=== PATIENT | female | born 1985 ===

== ENCOUNTER 2018-02-18 09:35 | Inpatient (IN) | payer SELFPAY ==
[2018-02-18] MEDS ORDERED: ceFAZolin 2 GM/DEXTROSE 100 ML IV ONE (09:38)
[2018-02-18] MEDS ORDERED: LR 500 ML IV ONE (09:38)
[2018-02-18] MEDS ORDERED: MISOPROSTOL 200 MCG TAB PR PRN (09:39)
[2018-02-18] MEDS ORDERED: TERBUTALINE SULFATE 1 MG/ML VIAL IV PRN (09:39)
[2018-02-18] MEDS ORDERED: OXYTOCIN/RINGERS LACTATE 1,000 ML IV PRN (09:39)
[2018-02-18] MEDS ORDERED: LR 1,000 ML IV PRN (09:39)
[2018-02-18] MEDS ORDERED: OLIVE OIL 118 ML BTL MISC PRN (09:39)
[2018-02-18] MEDS ORDERED: IBUPROFEN 600 MG TAB PO PRN (09:39)
[2018-02-18] MEDS ORDERED: LIDOCAINE 1% 300 MG/30 ML SDV SC PRN (09:39)
[2018-02-18] MEDS ORDERED: EPSOM SALT 454 GM TP PRN (09:39)
[2018-02-18] MEDS ORDERED: LR 1,000 ML IV SCH (10:00)
[2018-02-18] MEDS ORDERED: BETAMETHASONE IM SYRINGE IM ONE (10:15)
[2018-02-18 10:34] LABS: PLATELET COUNT 212 10^3/uL (150-400); PLATELET COUNT 258 10^3/uL (150-400)
[2018-02-18] MEDS ORDERED: DOCUSATE SODIUM 100 MG CAP PO PRN (10:35)
[2018-02-18] MEDS ORDERED: SIMETHICONE 80 MG TAB CHEW PO PRN (10:35)
[2018-02-18] MEDS ORDERED: PROMETHAZINE HCL 25 MG/ML INJ IVP PRN ×2 (10:35→10:36)
[2018-02-18] MEDS ORDERED: LR 500 ML IV PRN (10:36)
[2018-02-18] MEDS ORDERED: DEXAMETHASONE 4 MG/ML VIAL IVP PRN (10:36)
[2018-02-18] MEDS ORDERED: HYDROmorphONE/DILAUDID 2 MG/ML INJ IVP PRN (10:36)
[2018-02-18] MEDS ORDERED: NS 500 ML IV PRN (10:36)
[2018-02-18] MEDS ORDERED: fentaNYL 100 MCG/2 ML INJ IVP PRN (10:36)
[2018-02-18] MEDS ORDERED: ONDANSETRON 4 MG/2 ML VIAL IVP PRN ×2 (10:36→10:37)
[2018-02-18] MEDS ORDERED: NALOXONE HCL 0.4 MG/ML INJ IVP PRN ×2 (10:36→10:37)
[2018-02-18] MEDS ORDERED: METOCLOPRAMIDE 10 MG/2 ML VIAL IVP PRN (10:37)
[2018-02-18] MEDS ORDERED: HYDROmorphONE/DILAUDID 6 MG/30 ML PCA IV PRN (10:37)
[2018-02-18] MEDS ORDERED: POLYETHYLENE GLYCOL 3350 17 GM PKT PO PRN (10:38)
[2018-02-18] MEDS ORDERED: LACTULOSE 20 GM/30 ML UDCUP PO PRN (10:38)
[2018-02-18] MEDS ORDERED: BISACODYL 10 MG SUPP PR PRN (10:38)
[2018-02-18] MEDS ORDERED: MAGNESIUM HYDROXIDE 30 ML UDCUP PO PRN (10:38)
--- NOTE | 2018-02-18 10:39 | PDANEPAE ---
ANE History of Present Illness Emergency CS abruption ANE Review of Systems Review of systems is: negative Review of Systems: - Exercise capacity Exercise capacity: >=4 METS ANE Patient History - Allergies Allergies/Adverse Reactions: No Known Allergies Allergy (Unverified 02/18/18 09:38) ANE Labs/Vital Signs - Labs Result Diagrams: 02/18/18 10:11 02/18/18 10:11 ANE Physical Exam - Airway Neck exam: FROM Mallampati Score: Class 1 - Cardiovascular Cardiovascular: regular rate and rhythym - ASA Status ASA Status: II, E ANE Anesthesia Plan Anesthesia Plan: general endotracheal anesthesia Urgent/Emergent Case: Alanis bishop completed preop but documented later for safe timely pt care
--- NOTE | 2018-02-18 10:39 | POSTANESTH ---
Post Anesthetic Evaluation Cardiovascular Status: Normal, Stable Respiratory Status: Normal, Stable Level of Consciousness/Mental Status: Can Participate in Eval Pain Control: Inadeq, Add Tx Required Nausea/Vomiting Control: Adequate, Prn Tx Ordered Complications Possibly Related to Anesthesia: None Noted
--- NOTE | 2018-02-18 10:50 | OBDEL ---
Info Type: Primary Presentation at Delivery: Vertex L&D Analgesia/Anesthesia Type: General GBS+: No (unknown, patient no PNC) Intrapartum Medications: Ancef 2 g IV intra-op - Infant Care Provider Critical Care Nurse/CUSTOMS COMPLIANCE SPECIALIST: Natasha Homer - [facility] Course Intrapartum: 02/18/18 10:42 Pt presented with unknown LMP, told she was "6 weeks early." With severe heavy vaginal bleeding, passing large clots and rigid abdomen, writhing in pain which she described as a constant severe contraction. On attempt to document status, dopler document FHT's of 64, I performed a vaginal exam and her cervix was 1 cm, long, with heavy bleeding + clots. U/s documented heart rate in 60's. At that time the diagnosis of acute placental abruption was made and we proceeded with stat LTCS. Vaginal Delivery - Labor and Delivery Cord Gases: Cord Gases Cord Blood PCO2 103 mmHg (37-60) H 02/18/18 09:40 Cord Base Excess -29.3 mEq/L (-13.6--3.2) L 02/18/18 09:40 Cord ABG pH 6.73 (7.10-7.37) L 02/18/18 09:40 Cord VBG pH 6.83 (7.20-7.42) L 02/18/18 09:40 Operative Report - Delivery Pre-op Diagnoses: acute placental abruption Post-op Diagnoses: same History of Prior Section: No Number of Prior Sections: 0 Nulliparous Prior to Delivery: No Indications for Current Section: Placental Abruption Procedure: Emergent Surgeon: Valerie Anderson Courtesy Booth Cashier: Jez Marrero Anesthesiologist: Raffi Chapman Complications: None Findings: 70% placental abruption, normal uterus, tubes and ovaries Specimen(s)/Path: Placenta IV Fluid (ml): 1,000 EBL: 700 for surgery, 1500 for abruption Cord Gases: Cord Gases Cord Blood PCO2 103 mmHg (37-60) H 02/18/18 09:40 Cord Base Excess -29.3 mEq/L (-13.6--3.2) L 02/18/18 09:40 Cord ABG pH 6.73 (7.10-7.37) L 02/18/18 09:40 Cord VBG pH 6.83 (7.20-7.42) L 02/18/18 09:40 [place] Data [facility] Delivery Date: 02/18/18 Delivery Time: 09:40 Sex of : Male Weight (gm): 3550 g Score (1 Min): 1 Score (5 Min): 2 Score (10 Min): 2 ICD10 Worksheet Patient Problems: Problems Problem Status Onset Placental abruption Acute S/P emergency Acute - ICD10 Problem Qualifiers (1) S/P emergency (2) Placental abruption
[2018-02-18 11:05] LABS: INR 1.09 (0.83-1.16); PROTIME(PATIENT) 14.3 SEC (12.0-15.0)
[2018-02-18] MEDS ORDERED: KETOROLAC 30 MG/1 ML SDV ONE (11:18)
[2018-02-18] MEDS: KETOROLAC 30 MG/1 ML SDV IVP PRN ×3 (11:20→23:08)
--- NOTE | 2018-02-18 11:45 | GOP ---
DATE OF OPERATION: 02/18/2018 SURGEON: Valerie Anderson MD CATALYST SUPERVISOR: Dr. Jez Marrero MD. ANESTHESIA: General anesthesia. ANESTHESIOLOGIST: Dr. Raffi Chapman. PREOPERATIVE DIAGNOSIS: Acute placental abruption. POSTOPERATIVE DIAGNOSIS: Acute placental abruption. PROCEDURE PERFORMED: Emergent lower transverse section. FINDINGS: Viable male, Apgars of 1, 2 and 2, weight of 3550 g. Arterial pH was 6.73, venous pH 6.83 , pCO2 103. Documented start time for the procedure was 9:40 and delivery time was also 9:40. ESTIMATED BLOOD LOSS: For the procedure was 700 cc. Estimated blood loss for the abruption was appr oximately 1500. DESCRIPTION OF PROCEDURE: The patient was placed under general anesthesia. A Castro catheter was cong donny and she had a quick Betadine prep performed. A WHO time-out was performed. Patient had Ancef st arted. A transverse skin incision was made with a scalpel. Incision was carried down to the underly ing layer of fascia with the scalpel. The fascia was incised in the midline with Jurado scissors. Sup erior aspect of the fascia was incision was grasped with Emeli clamps, elevated, and the rectus musc les were dissected off sharply. Inferior aspect of the fascial incision was grasped with Emeli clam ps, elevated, and the rectus muscles were sharply. Rectus muscles were in the mi dline. Peritoneum was entered bluntly. The bladder blade was inserted and the uterus. The vesicout erine peritoneum and the uterus were incised with a knife. The incision was extended bluntly. There was large clots upon entry to the uterine cavity. The was in cephalic presentation and was d elivered atraumatically. The cord was clamped and cut. The infant was handed off to the waiting [facility] nurse practitioner. Cord blood sample was sent as well as cord bloods were sent. The placenta was removed manually estimated to be approximately 70% abrupt. The uterus was exteriorized, cleared of all clots and debris. The uterine tone was found to be normal. The uterine incision was repaire d with 0 Vicryl in a running, locked fashion. Small areas of bleeding were made hemostatic with figu re-of-eight sutures of 0 Vicryl and a second imbricating layer was also performed and good hemostasis was assured. The uterus was returned to the abdomen. Gutters were cleared of all clots and debris. Reinspection of the uterine incision again assured hemostasis. The rectus muscles were approximate d with 2-0 Vicryl in an inverted mattress fashion. The fascia was closed with #1 Vicryl in a running fashion. Subcutaneous layer was closed with 2-0 Vicryl and the skin was closed with 4-0 Vicryl. Th e patient tolerated the procedure well. An instrument count was not performed prior to surgery, so a n x-ray was performed at the end of surgery and there were no documented foreign bodies. The patient went to the recovery room in good condition. INDICATIONS FOR PROCEDURE: The patient is a 32-year-old 2, para 1-0-0-1, with an unknown las t menstrual or EDC, who presented without care to Labor and Delivery at [facility]. She was complaining of severe abdominal pain, was writhing in pain with a rigid uterus and h eavy vaginal bleeding, passing large clots she reported at 9:20 a.m. The patient reported the bleedi ng had started at 3 a.m. and the pain acutely worsened over several hours. She was unable to reveal if she had had adequate care or any history of her including her last menstrual pe riod or EDC. The patient reported that she was "6 weeks early." On assessment, she was having heavy vaginal bleeding, had a rigid uterus and heart tones were documented at 64. Ultrasound confir med documented heart rates between 60 and 70. A cervical exam was performed. She was 1 cm, 50%, had large clots vaginally. Decision was made to proceed with stat lower transverse section for presumed placental abruption of unknown gestational age. The patient was verbally consented. Writt en consent was not performed. The patient was rolled to the operating room quickly. IV FLUIDS: 1000 cc. URINE OUTPUT: 150 cc. /[id number]/MODL
[2018-02-18 15:36] LABS: HEPATITIS B SURFACE ANTIGEN NEGATIVE (NEGATIVE); HEPATITIS C ANTIBODY TOTAL NEGATIVE (NEGATIVE); HIV TYPE 1 AND 2 NEGATIVE (NEGATIVE)
--- NOTE | 2018-02-18 15:57 | GHP ---
DATE OF ADMISSION: 02/18/2018 HISTORY OF PRESENT ILLNESS: Soniya is a 32-year-old 2, para 1-0-0-1, with an unknown last men strual, and an unknown estimated due date, who presented to Labor and Delivery with abrupt onset of s evere abdominal pain, uterine contractions, a tonic contraction that would not stop, writhing in pain , and heavy vaginal bleeding, passing large clots. Patient denied any recent drug use or any recent trauma. She reported began bleeding at approximately 3 o'clock in the morning. The bleeding became heavier, and the pain more intense, and she had a friend who took her to [facility] e mergency department. She denied regular care. We had difficulty verifying any car e, and she felt that she was approximately 6 weeks early for her due date. Upon assessment, the feta l heart tones were in the 60s, documented by ultrasound and Doptones. The clinical decision of acute placental abruption was made, and we proceeded for stat section for delivery of a viable jean bedoya . Please see operative note for full details. PAST OBSTETRICAL HISTORY: Patient claims to have 1 spontaneous vaginal delivery of a viable female w ho is now 12 years old without complications. She claims this is her second . PAST MEDICAL OR SURGICAL HISTORY: She reports no past history or past surgical history, and no known drug allergies. None of this can be verified with prenatals or documentation. Patient denies any h istory of sexually transmitted diseases or gynecological problems. SOCIAL HISTORY: Patient reports being homeless. She has a friend whom she has been living with for a couple of weeks, and he is supposed to be coming to verify her medical information and identity. S he admits to smoking. Denies alcohol use, and denies any drug use, however. Urine toxicology is pos itive for amphetamines, as well as opiates. However, she was under general anesthesia when this [facility] le was obtained. OBJECTIVE: GENERAL: On presentation in general, she was a well-developed, gravid, white female in s evere distress, because of contractions and rigid abdomen, heavy vaginal bleeding with large clots. She was tachycardic. Blood pressure was stable. She was alert and oriented. heart tones were in the 60s. VAGINAL EXAM: Cervix was 1 cm, 50%, and there was large blood in the vault. LABS: White blood cell count was 14.9. Hemoglobin is 10.2, hematocrit 32, platelets 258, coags PT 1 4.3, INR 1.09, PTT 26, fibrinogen 466, D-dimer 6.62. Chemistries: BUN 16, creatinine 0.8, uric acid 6.7, AST 27, ALT 12, LDH 683. Urinalysis showed 1+ p rotein, trace ketones, 3+ blood, 1+ leuk esterase, 15-25 white cells, 15-25 red blood cells, 4+ bacte denice. Creatinine was 2.65. Protein was 5, and glucose was negative. She is blood type A positive, a ntibody negative. Again, toxicology was positive for opiates and amphetamines. ASSESSMENT AND PLAN: A 32-year-old 2, para now 2-0-0-2, who is postop from an emergency low- transverse section secondary to presumed placental abruption. The baby was a viable male. Apgars were 1, 2, and 2. Weight is 3550 grams. Baby was immediately attended by a nurse pr actitioner and the nursery team, was intubated, and stable, and is transferred to [facility] for critical assessment and head cooling. The patient had a normal delivery without compli cation. EBL was 700 for the procedure, approximately 1500 for the abruption. She is clinically stab le now, and will have routine postop care. Social Work will be involved. /[id number]/MODL
[2018-02-18] MEDS: ACETAMINOPHEN 325 MG TAB PO SCH ×3 (17:34→21:51)
[2018-02-18] MEDS: IBUPROFEN 600 MG TAB PO SCH ×3 (17:34→23:05)
[2018-02-18] MEDS: SENNOSIDES/DOCUSATE SODIUM TAB PO SCH (23:10)
[2018-02-19] MEDS: HYDROCODONE/APAP 5/325 TAB PO PRN ×3 (02:04→09:54)
[2018-02-19] MEDS: IBUPROFEN 600 MG TAB PO SCH ×4 (04:45→22:45)
[2018-02-19] MEDS: ACETAMINOPHEN 325 MG TAB PO SCH ×4 (04:45→21:18)
[2018-02-19] MEDS: KETOROLAC 30 MG/1 ML SDV IVP PRN ×3 (04:51→19:08)
--- NOTE | 2018-02-19 12:31 | OBPP ---
Progress Note Assessment/Plan: Assessment: 1) s/p emergent PCS secondary to acute placental abruption POD # 1 - pt is stable 2) Anemia - pt is symptomatic 3) No care 4) Inadequate pain control, ?withdrawal Plan: Continue routine post-op care Long discussion with patient re: blood transfusion; pt is symptomatic with dizziness-not able to get OOB without help and tachycardia; pt wants to think about it; all questions answered Will start iron BID and continue colace; bowel protocol prn Will change to Oxycodone IR since she took all [place] that was allowed; discussed better pain control with ATC Motrin and Tylenol and Oxy for severe breakthrough pain Also discussed that her symptoms may be secondary to withdrawal; discussed UDS + amphetamies and pt admits to pain patch that she got from friend for back pain as well as diet pills and energy pills throughout to help with her being tired, but denies any other illicit drug use So far initial labs are negative; urine cx pending senior manager creative services will see patient in am 02/20/18 02/19/18 12:59 Subjective/ Course: 02/19/18 12:43 Pt seen and examined. She is c/o pain in her lower abdomen, mostly near her incision; pain 8/10. She is unable to sit still. She is not feeling good-feels sweaty, lightheaded, dizzy when up OOB and was nauseated earlier this morning. Pt has been OOB once this morning with help by RN to chair and bathroom, rossana regular diet but decreased appetite, voiding without difficulty and no flatus. She is not drinking much. Pt states she uses "a patch" for her back pain and has taken diet and energy pills throughout her to help feeling tired. Denies any f/c/n/v/CP or SOB. Mod lochia. Objective: 02/19/18 08:10 02/18/18 10:11 Patient ABO/Rh A POSITIVE 02/18/18 09:30 Uric Acid 6.7 mg/dL (2.5-6.8) 02/18/18 10:11 Total Bilirubin 0.5 mg/dL (0.1-1.4) 02/18/18 10:11 Conjugated Bilirubin 0.4 mg/dL (0.0-0.5) 02/18/18 10:11 Unconjugated Bilirubin 0.1 mg/dL (0.0-1.1) 02/18/18 10:11 AST 27 IU/L (14-46) 02/18/18 10:11 ALT 12 IU/L (9-52) 02/18/18 10:11 Lactate Dehydrogenase 683 IU/L (313-618) H 02/18/18 10:11 Temp Pulse Resp BP Pulse Ox 36.4 C 84 24 H 112/64 96 02/19/18 08:00 02/19/18 08:00 02/19/18 08:00 02/19/18 08:00 02/19/18 08:00 Uterine Position/Fundal Height: Umbilicus -1 Uterine Tone: Firm Physical Exam - Physical Exam General Appearance: WD/WN, alert, moderate distress (secondary to pain) Respiratory: lungs clear, normal breath sounds Cardiac/Chest: regular rate, rhythm Abdomen: normal bowel sounds, soft, incision (C/D/I with dressing in place), dressing (intact without shadowing), other (diffuse tenderness in lower abdomen) Extremities: non-tender, normal inspection Skin: warm/dry, diaphoresis, pallor Neuro/Psych: alert, normal mood/affect, oriented x 3
[2018-02-19] MEDS: oxyCODONE IR 5 MG TAB PO PRN ×3 (13:18→21:18)
[2018-02-19] MEDS: FERRO-SEQUELS 65 MG TAB.ER PO SCH ×2 (15:01→21:17)
--- NOTE | 2018-02-19 15:39 | ASMTCMCOM ---
CM Note CM Note Notes: JONATHON Sonal Matos did not save this note in [employer] 02/18/18: CM received call from [employer] [facility] [employer] requesting CM visit with patient. Patient presented to [facility] ED this morning with contractions resulting in an emergency . The patient reports she is 6 weeks until due date. The baby was transferred to [facility]. CM met with patient, she shares she is extremely scared and in pain. CM shared how the Case management role could help support her transition from the hospital, and asked what her plans are at discharge. The patient states she is unsure, she is currently staying with a good friend Shalom in [place]. She states she has been considering adoption but had not connected with any agencies as she thought she had more time, she is interested in moving forward with adoption. She shares Shalom, who was leaving the room when CM arrived, was going to get her ID and insurance information. She states she believes she is covered by [employer] insurance and is unsure if she has Medicaid. She did not answer when CM asked if she is currently working. She shared her date is 89 and is open to seeing if she qualifies for Medicaid if she doesn't have [employer]. CM shared another CM will meet with her tomorrow. CM to follow. Date Signed: 02/19/2018 03:39 PM Electronically Signed By:RITU Decker
--- NOTE | 2018-02-19 15:43 | ASMTCMCOM ---
CM Note CM Note Notes: CPS report made to Tamera at [facility] due to concerns of homelessness and methamphetamine use (no report # at this time). Pt reports she has no address, phone is [phone]. Baby monae Leggett is at [facility]. Pt provided three adoption agencies contact information, pt declined assistance making any phone calls. Pt reports babys father unknown he was a one-night stand. Pt still has not produced identification, concern she is providing false information. Pt reports she is on her parents medical insurance, upon further assessment this seems unlikely due to pt age, or maybe she is referring to auto insurance because she told yesterdays CM her insurance is [place]. Pt referred to [facility] for Medicaid screening and provided [facility] booklet and referral made to [facility]. Pt reports she has no contact with her twelve year old female child who is being raised by jennifer father. Nursing staff at [facility] suspect pt is a person who also gave to another baby approx. two years ago, left baby at [facility]. Pt provided homeless resources. Pt challenged by pain control, likely d/c . CM to follow. Date Signed: 02/19/2018 03:42 PM Electronically Signed By:RITU Decker
[2018-02-19] MEDS: SENNOSIDES/DOCUSATE SODIUM TAB PO SCH ×2 (17:22→21:17)
[2018-02-20] MEDS: oxyCODONE IR 5 MG TAB PO PRN ×5 (01:35→21:02)
[2018-02-20] MEDS: IBUPROFEN 600 MG TAB PO SCH ×4 (01:47→22:56)
[2018-02-20] MEDS: ACETAMINOPHEN 325 MG TAB PO SCH ×4 (05:31→22:57)
[2018-02-20] MEDS: FERRO-SEQUELS 65 MG TAB.ER PO SCH ×2 (08:29→21:02)
[2018-02-20] MEDS: SENNOSIDES/DOCUSATE SODIUM TAB PO SCH (08:29)
--- NOTE | 2018-02-20 10:02 | ASMTCMCOM ---
CM Note CM Note Notes: Met with patient. She is emotional and having pain. I inquired about her plan of care at discharge and she is to go stay with her friend Shalom who is present in her room this am. I have planned to return to her room this afternoon to further discuss what her options are. Plan: Liekly to dc independently. Date Signed: 02/20/2018 10:01 AM Electronically Signed By:Sameera Donis RN
[2018-02-20] MEDS ORDERED: diphenhydrAMINE 25 MG CAP PO ONE (13:23)
--- NOTE | 2018-02-20 13:25 | OBPP ---
Progress Note Assessment/Plan: Assessment: POD2 s/p emergent PLTCS for abruption at unknown GA, pt thinks she was approximately 34 wks. Pt significant anemic post-op. Blood transfusion was discussed yesterday and repeat labs this AM slightly lower - pt profoundly symptomatic. Acute blood loss anemia: - Long discussion re transfusion today and pt now agreeable. I recommend two units PRBC's. Will recheck H/H in the AM. - Clinically belly is benign and soft, lochia appropriate - low suspicion for ongoing occult bleed. Ecoli UTI: - UCX from admission came back with > 100k Ecoli, Rx'd Macrobid 100mg BID x 7days. Pos amphetamines on UDS: - No s/sx of withdrawal currently. CPS involved. Routine cares - likely home tomorrow. Rh pos, Rubella immune. On PO iron as well. JM Subjective/ Course: Soniya reports that feels better in some ways this AM - belly pain etc is improved, but she still feels really weak and exhausted. Has been quite dizzy when getting up out of bed - needs assistance, etc. She has come around to the idea of a blood transfusion if we would still recommend that. Objective: 02/20/18 12:45 02/18/18 10:11 Patient ABO/Rh A POSITIVE 02/18/18 09:30 Uric Acid 6.7 mg/dL (2.5-6.8) 02/18/18 10:11 Total Bilirubin 0.5 mg/dL (0.1-1.4) 02/18/18 10:11 Conjugated Bilirubin 0.4 mg/dL (0.0-0.5) 02/18/18 10:11 Unconjugated Bilirubin 0.1 mg/dL (0.0-1.1) 02/18/18 10:11 AST 27 IU/L (14-46) 02/18/18 10:11 ALT 12 IU/L (9-52) 02/18/18 10:11 Lactate Dehydrogenase 683 IU/L (313-618) H 02/18/18 10:11 Temp Pulse Resp BP Pulse Ox 36.7 C 85 16 121/76 H 95 02/20/18 12:53 02/20/18 12:53 02/20/18 12:53 02/20/18 12:53 02/20/18 12:53 Laboratory Tests 02/18/18 02/19/18 02/20/18 10:11 08:10 12:45 Hgb 5.3 L* Hct 32.0 L 16.7 L* 15.9 L* Physical Exam - Physical Exam Abdomen: soft, incision (CDI with steri-strips), No distended
--- NOTE | 2018-02-20 15:28 | ASMTCMCOM ---
CM Note CM Note Notes: Spoke to Helen HOLT at [facility] where male was transferred. She is calling to inquire about CPS. I have no case number. Per RN on the floor CPS visited with patient this am. Patient has symptomatic anemia and requires a blood transfusion. Emphasized need for ID to clarify her name and . I have also requested she call Helen [phone] to assist with baby's ID and plans to proceed with adoption proceedings. CM to follow. Plan: Likely to discharge independently. Date Signed: 02/20/2018 03:27 PM Electronically Signed By:Sameera Donis RN
--- NOTE | 2018-02-20 16:13 | ASMTCMCOM ---
CM Note CM Note Notes: CPS case packer for Oleksandr, keila is Tiar[place]. [phone] Date Signed: 02/20/2018 04:13 PM Electronically Signed By:Sameera Donis RN
[2018-02-20] MEDS: NITROFURANTOIN MACROBID 100 MG CAP PO SCH (17:29)
[2018-02-21] MEDS: NITROFURANTOIN MACROBID 100 MG CAP PO SCH ×2 (01:23→08:21)
[2018-02-21] MEDS: SENNOSIDES/DOCUSATE SODIUM TAB PO SCH ×2 (01:23→08:21)
[2018-02-21] MEDS: IBUPROFEN 600 MG TAB PO SCH ×2 (04:53→15:55)
[2018-02-21] MEDS: ACETAMINOPHEN 325 MG TAB PO SCH ×2 (04:54→15:55)
[2018-02-21] MEDS: FERRO-SEQUELS 65 MG TAB.ER PO SCH (08:21)
[2018-02-21] MEDS: oxyCODONE IR 5 MG TAB PO PRN (08:27)
[2018-02-21 08:37] VITALS: BP 103/61
--- NOTE | 2018-02-21 09:13 | OBPP ---
Progress Note Assessment/Plan: Assessment: 1) s/p emergent PCS secondary to acute placental abruption at unknown GA with no care POD # 3 - pt is stable 2) Acute blood loss Anemia - pt is less symptomatic, s/p 2 units PRBCs 3) Ecoli UTI - currently on Macrobid 4) Positive amphetamines on UDS - no signs of withdrawal at this time Plan: Continue routine post-op care Will check H/H this am, since not ordered - s/p 2 units PRBCs Plan for d/c home with Shalom later today if up and moving around with no issues vocational services specialist working with pt and pt given resources Instructions reviewed with pt Rx given for Motrin, Oxy, iron and Macrobid with instructions Pelvic rest and lifting restrictions given Discussed cold compresses or cabbage leaves and well-supported, tight bra to help prevent RTC in 4 and 6 weeks for pp check 02/21/18 09:16 Subjective/ Course: Soniya reports that feels better in some ways this AM - belly pain etc is improved, but she still feels really weak and exhausted. Has been quite dizzy when getting up out of bed - needs assistance, etc. She has come around to the idea of a blood transfusion if we would still recommend that. 02/21/18 09:13 Pt seen and examined. Pain is well controlled with po meds. She is still feeling tired and wants to sleep. She states her "milk has come in." Pt has not been OOB much, rossana regular diet, voiding and passing flatus. No BM yet. Pt has refused to shower. Denies any f/c/n/v/CP or SOB. Mod lochia. She plans to go home with Shalom who lives here in [place]. Objective: 02/20/18 12:45 02/18/18 10:11 Patient ABO/Rh A POSITIVE 02/18/18 09:30 Uric Acid 6.7 mg/dL (2.5-6.8) 02/18/18 10:11 Total Bilirubin 0.5 mg/dL (0.1-1.4) 02/18/18 10:11 Conjugated Bilirubin 0.4 mg/dL (0.0-0.5) 02/18/18 10:11 Unconjugated Bilirubin 0.1 mg/dL (0.0-1.1) 02/18/18 10:11 AST 27 IU/L (14-46) 02/18/18 10:11 ALT 12 IU/L (9-52) 02/18/18 10:11 Lactate Dehydrogenase 683 IU/L (313-618) H 02/18/18 10:11 Temp Pulse Resp BP Pulse Ox 36.4 C 74 16 103/61 97 02/21/18 08:36 02/21/18 08:36 02/21/18 04:58 02/21/18 08:36 02/21/18 08:36 Uterine Position/Fundal Height: Umbilicus -2 Uterine Tone: Firm Physical Exam - Physical Exam General Appearance: WD/WN, alert, no apparent distress Respiratory: lungs clear, normal breath sounds Cardiac/Chest: regular rate, rhythm Abdomen: normal bowel sounds, soft, flatus (+), incision (C/D/I with steri strips in place), other (appropriate tenderness) Extremities: non-tender, normal inspection Skin: warm/dry, pallor Neuro/Psych: alert, normal mood/affect, oriented x 3
--- NOTE | 2018-02-21 09:18 | OBGCSDC ---
General Delivery Information - General Info : 2 Para: 2 Abortions: 0 Type: Primary L&D Analgesia/Anesthesia Type: General Admission Date: 02/18/18 Labs: Patient ABO/Rh A POSITIVE 02/18/18 09:30 Hct 15.9 % (38.0-47.0) L* 02/20/18 12:45 Hep Bs Antigen NEGATIVE (NEGATIVE) 02/18/18 13:56 - Hospital Course Intrapartum: 02/18/18 10:42 Pt presented with unknown LMP, told she was "6 weeks early." With severe heavy vaginal bleeding, passing large clots and rigid abdomen, writhing in pain which she described as a constant severe contraction. On attempt to document status, dopler document FHT's of 64, I performed a vaginal exam and her cervix was 1 cm, long, with heavy bleeding + clots. U/s documented heart rate in 60's. At that time the diagnosis of acute placental abruption was made and we proceeded with stat LTCS. : Soniya reports that feels better in some ways this AM - belly pain etc is improved, but she still feels really weak and exhausted. Has been quite dizzy when getting up out of bed - needs assistance, etc. She has come around to the idea of a blood transfusion if we would still recommend that. 02/21/18 09:13 Pt seen and examined. Pain is well controlled with po meds. She is still feeling tired and wants to sleep. She states her "milk has come in." Pt has not been OOB much, rossana regular diet, voiding and passing flatus. No BM yet. Pt has refused to shower. Denies any f/c/n/v/CP or SOB. Mod lochia. She plans to go home with Shalom who lives here in [place]. - Delivery Providers Surgeon: Valerie Anderson Tree Deadener: Jez Marrero Anesthesiologist: Raffi Chapman - Delivery Number of Prior Sections: 0 Indications for Current Section: Placental Abruption Surgical Procedures: Emergent Intra-op Complications: None EBL: 700 for surgery, 1500 for abruption [place] Data ESE: 03/11/18 Gestational Age: 37 week(s) and 3 day(s) Perez Delivery Date: 02/18/18 Delivery Time: 09:40 [place] Weight (gm): 3550 g Discharge Information - Discharge Information Condition: Good Instruction/Follow Up: Four Weeks (mood check), Six Weeks ( check)
== END 2018-02-21 11:25 | disposition home or self-care (01) | DRG 787 ==
LOC: EDBD → FLD 09:35 → MERGE 09:35 → FLD 09:38 → FOB 14:56 → FLD 02-20 14:25
PROVIDERS: ADMIT Obstetrics & Gynecology; ATTEND Obstetrics & Gynecology
DX: O45.93 Premature separation of placenta, unspecified, third trimester (principal); O90.81 Anemia of the puerperium; O23.43 Unspecified infection of urinary tract in pregnancy, third trimester; B96.20 Unspecified Escherichia coli [E. coli] as the cause of diseases classified elsewhere; Z59.0 Homelessness; Z3A.37 37 weeks gestation of pregnancy; Z37.0 Single live birth
CPT/HCPCS: 80307; G0472; G0480; J0690; J0702; J1170; J1885; P9016